=== PATIENT | female | born 1980 | race African-American/Black ===

== ENCOUNTER 2022-11-13 12:21 | Inpatient (IN) | payer MEDICAID ==
[~2022-11-13] VITALS: Ht 152.4 cm; Wt 76.7 kg
[2022-11-13 12:44] VITALS: BP_SYST 111; PULSE 95; RESP 22; TEMP 98.3; O2SAT 97
--- NOTE | 2022-11-13 12:48 | NUR ---
Patient to ER bed 08 to gown for evaluation. Side rails up.
--- NOTE | 2022-11-13 13:00 | NUR ---
PATIENT BIB [facility] FACILITY ADMIN FOR WORSENING SKIN RASH SYMPTOMS OF AUTOIMMUNE DISORDER BULLOUS PEMPHIGOLD. OUTBREAK NOTED TO RIGHT NECK/CHEST. MED HX OF DOWNS SYNDROME. PATIENT HAS BEEN BEING TREATED ONGOING BY LDR RN SINCE JAN 2022 & FAMILY/FACILITY REPORTS WHAT THEY BELIEVE TO BE ADVERSE REACTIONS TO PREDNISONE IN FORM OF PSYCHOSIS. FACILITY ADMIN DOES STATE THAT DERM STECILIST EXPLAINED THAT MAY BE THE ONLY OPTION FOR TREATMENT & THEY GAVE ONE DOSE OF 20 MG PRIOR TO COMING TO ED THIS AM. PATIENT CURRENTLY CALM & COOPERATIVE. VSS.
[2022-11-13] MEDS ORDERED: predniSONE 20 MG TABLET PO ONE ×2 (13:30)
--- NOTE | 2022-11-13 13:30 | NUR ---
MEDICATIONS ADMINISTERED PER MD ORDERS.
--- NOTE | 2022-11-13 13:43 | NUR ---
Phlebotomy at bedside obtaining samples for testing
[2022-11-13 13:50] LABS: BASOPHILS % (AUTO) 0.3 % (0.0-2.0); EOSINOPHILS # (AUTO) 0.1 K/uL (0.0-0.4); EOSINOPHILS % (AUTO) 0.9 % (0.0-4.0); HEMATOCRIT 49.5 % (36-48); HEMOGLOBIN 15.7 g/dL (12.0-16.0); LYMPHOCYTES # (AUTO) 1.7 K/uL (1.0-5.5); LYMPHOCYTES % (AUTO) 12.6 % (20.5-51.5); MEAN CORPUSCULAR HEMOGLOBIN 29 pg (27-31); MEAN CORPUSCULAR HGB CONC 32 % (32-36); MEAN CORPUSCULAR VOLUME 90 fL (79.0-98.0); MONOCYTES # (AUTO) 0.5 K/uL (0.0-1.0); NEUTROPHILS % (AUTO) 82.2 % (40.0-70.0); PLATELET COUNT (AUTO) 214 K/uL (130-430); RED CELL DISTRIBUTION WIDTH 15.6 % (9.0-15.0); WHITE BLOOD COUNT (AUTO) 13.4 K/uL (4.8-10.8)
[2022-11-13 13:52] LABS: ERYTHROCYTE SEDIMENTATION RATE 45 MM/HR (0-20)
[2022-11-13 14:06] LABS: CALCIUM 8.4 mg/dL (8.4-11.0); CREATININE 1.05 mg/dL (0.55-1.30)
[2022-11-13 14:10] LABS: ALBUMIN 2.2 g/dL (3.4-4.8); TOTAL BILIRUBIN 0.4 mg/dL (0.0-1.0)
--- NOTE | 2022-11-13 15:27 | NUR ---
NOTIFIED ED ADMITTING, TONEY REGARDING DR. GREEN'S REQEUST FOR ADMISSION/TRANSFER. PER DR. GREEN, PT IS STABLE FOR TRANSFER. WILL CONTACT INTERVENTIONAL PAIN PHYSICIAN REGARDING THIS MATTER. PER FACESHEET: [facility]/MEDICAL-SUPERIOR CHOICE MEDICAL GPP
--- NOTE | 2022-11-13 15:31 | NUR ---
Admit bed requested Patient will be admitted to care of . Admitted to MED SURG unit. Diagnosis LEUKOCYTOSIS Inpatient (Yes or No) Y Observation (Yes or No) N Orientation concerns or request close to nursing station (Yes or No) N Covid Status N/A On vent or bipap N Isolation requirements N Needs a sitter N From Home (Yes or if No enter name of facility) [facility] Requires Dialysis (Yes or No) N Med Rec Completed (Yes of No) N
[2022-11-13] MEDS ORDERED: TRAZ-250 PO (16:15)
[2022-11-13] MEDS ORDERED: LEVE500T21 PO (16:15)
[2022-11-13] MEDS ORDERED: MYCO500T5 PO (16:15)
[2022-11-13] MEDS ORDERED: ATOR10TA68 PO (16:15)
[2022-11-13] MEDS ORDERED: QUET25TA36 PO (16:15)
[2022-11-13] MEDS ORDERED: HYDR-500 PO (16:15)
[2022-11-13 17:58] VITALS: BP_SYST 141; PULSE 87; RESP 15; TEMP 97.3
--- NOTE | 2022-11-13 19:15 | NUR ---
OPENING NOTE REPORT RECEIVED FROM DAYSHIFT NURSE. PATIENT RECEIVED LYING IN BED, AWAKE, NO S/S OF ACUTE DISTRESS. BREATHING EVEN AND UNLABORED. HOB SLIGHTLY RAISED. IV SITE PATENT. CALL LIGHT WITH PATIENT. BED ALARM ON. BED IS LOCKED AND AT LOWEST POSITION. WILL CONTINUE TO MONITOR.
[2022-11-13] MEDS ORDERED: ONDANSETRON HCL 4 MG/2 ML VIAL IVP PRN (19:45)
[2022-11-13] MEDS ORDERED: NALOXONE HCL 0.4 MG/ML AMP (NARCAN) IVP PRN ×2 (19:45)
[2022-11-13] MEDS ORDERED: ACETAMINOPHEN 325 MG TABLET PO PRN ×2 (19:45→20:00)
[2022-11-13] MEDS ORDERED: HYDROcodone/ACETAMIN 5-325 MG TAB (NORCO/ VICODIN) PO PRN (19:45)
[2022-11-13 20:00] VITALS: BP_SYST 116; PULSE 78; RESP 18; TEMP 97.4; O2SAT 95
[2022-11-13] MEDS: levETIRAcetam 500 MG TABLET PO SCH ×2 (21:00→23:24)
[2022-11-13] MEDS: traZODone HCL 50 MG TABLET (DESYREL) PO SCH ×2 (21:00→23:24)
[2022-11-13] MEDS: methylPREDNISolone SOD SUCC/PF 62.5 MG/ML VIAL IVP SCH (21:00)
[2022-11-13] MEDS: ATORVASTATIN 10 MG TABLET PO SCH (21:00)
[2022-11-13] MEDS: QUEtiapine FUMARATE 25 MG TABLET PO SCH (21:00)
[2022-11-13] MEDS: mycophenolate mofetiL 250 MG CAPSULE PO SCH (21:00)
--- NOTE | 2022-11-13 21:30 | NUR ---
REFUSING MEDICATIONS PATIENT EDUCATED ON MEDICATIONS, ITS PURPOSE AND BENEFITS ALONG WITH SIDE EFFECTS. PATIENT WAVES HER LEFT INDEX FINGER INDICATING SHE IS REFUSING. ATTEMPTED MULTIPLE TIMES, ALSO WITH A DIFFERENT NURSE, PATIENT STILL REFUSES. CHANGE NURSE WILL BE MADE AWARE.
[2022-11-13] MEDS: NORMAL SALINE 5 ML DISP.SYRIN IVF SCH (22:00)
[2022-11-14] VITALS (7 sets, daily range): BP systolic 105–122; PULSE 72–84; RESP 16–18; TEMP 97.1–97.9; O2SAT 94–97
--- NOTE | 2022-11-14 | NUR ---
ROUNDS PATIENT IN BED, RESTING. NO SIGNS OF DISCOMFORT. CHEST RISE AND FALL EVEN BILATERALLY. CALL LIGHT WITH PATIENT. BED ALARM ON. WILL CONTINUE TO MONITOR.
--- NOTE | 2022-11-14 04:00 | NUR ---
ROUNDS/REFUSING KARUNA CARE PATIENT IN BED, RESTING, WOKEN UP FOR KARUNA CARE. PATIENT REFUSING TO HAVE SWEAT PANTS REMOVED, 2ND RN (FEMALE) AT BEDSIDE ATTEMPTING TO CONVINCE PATIENT WITH ME. PATIENT STILL REFUSING. WILL ATTEMPT AGAIN LATER. OTHERWISE PATIENT SHOWS NO SIGNS OF DISCOMFORT. SAFETY PRECAUTIONS IN PLACE. WILL MONITOR.
[2022-11-14 04:57] LABS: BASOPHILS % (AUTO) 0.2 % (0.0-2.0); EOSINOPHILS % (AUTO) 0.1 % (0.0-4.0); HEMATOCRIT 41.7 % (36-48); HEMOGLOBIN 13.5 g/dL (12.0-16.0); LYMPHOCYTES # (AUTO) 2.2 K/uL (1.0-5.5); MEAN CORPUSCULAR HEMOGLOBIN 29 pg (27-31); MEAN CORPUSCULAR HGB CONC 32 % (32-36); MEAN CORPUSCULAR VOLUME 88 fL (79.0-98.0); MONOCYTES # (AUTO) 0.7 K/uL (0.0-1.0); MONOCYTES % (AUTO) 8.1 % (1.7-9.3); NEUTROPHILS # (AUTO) 5.5 K/uL (1.8-7.7); NEUTROPHILS % (AUTO) 65.6 % (40.0-70.0); PLATELET COUNT (AUTO) 229 K/uL (130-430); RED BLOOD CELL COUNT(AUTO) 4.75 MIL/uL (4.2-6.2); RED CELL DISTRIBUTION WIDTH 14.9 % (9.0-15.0); WHITE BLOOD COUNT (AUTO) 8.3 K/uL (4.8-10.8)
[2022-11-14 05:09] LABS: CALCIUM 8.7 mg/dL (8.4-11.0); CREATININE 0.68 mg/dL (0.55-1.30)
[2022-11-14] MEDS: NORMAL SALINE 5 ML DISP.SYRIN IVF SCH ×3 (06:00→21:08)
--- NOTE | 2022-11-14 06:21 | NUR ---
CLOSING NOTE PATIENT IN BED, NO S/S OF ACUTE DISTRESS. BREATHING EVEN AND UNLABORED. IV SITE REMAINS INTACT. PATIENT REFUSING KARUNA CARE STILL, OFFERED BY RN. SAFETY PRECAUTIONS IN PLACE. WILL MONITOR UNTIL PATIENT CARE IS ENDORSED TO ONCOMING DAYSHIFT NURSE.
[2022-11-14] MEDS: methylPREDNISolone SOD SUCC/PF 62.5 MG/ML VIAL IVP SCH ×2 (08:49→21:00)
[2022-11-14] MEDS: levETIRAcetam 500 MG TABLET PO SCH ×2 (08:50→21:01)
[2022-11-14] MEDS: mycophenolate mofetiL 250 MG CAPSULE PO SCH ×2 (09:01→21:01)
--- NOTE | 2022-11-14 15:10 | NUR ---
Patient Refused Wound Assessment: Patient refused wound assessment despite explanation of nature and benefit wound assessments. Will try again tomorrow.
--- NOTE | 2022-11-14 19:15 | NUR ---
OPENING NOTE REPORT RECEIVED FROM DAYSHIFT NURSE. PATIENT RECEIVED LYING IN BED, AWAKE, EATING DINNER. NO S/S OF ACUTE DISTRESS. BREATHING EVEN AND UNLABORED. CALL LIGHT WITH PATIENT. BED ALARM ON. BED IS LOCKED AND AT LOWEST POSITION. WILL CONTINUE TO MONITOR.
[2022-11-14] MEDS: traZODone HCL 50 MG TABLET (DESYREL) PO SCH (21:00)
[2022-11-14] MEDS: ATORVASTATIN 10 MG TABLET PO SCH (21:00)
[2022-11-14] MEDS: HYDROcodone/ACETAMIN 10-325 MG TAB PO PRN (21:01)
[2022-11-14] MEDS: QUEtiapine FUMARATE 25 MG TABLET PO SCH (21:01)
[2022-11-15] VITALS (7 sets, daily range): BP systolic 108–136; PULSE 71–84; RESP 14–20; TEMP 96.2–97.6; O2SAT 92–98
[2022-11-15] MEDS: LORazepam 2 MG/ML VIAL IVP PRN (00:27)
--- NOTE | 2022-11-15 00:27 | NUR ---
PICKING SCABS AIR SAMPLER INFORMED RN, PATIENT WAS PICKING HER SCABS ON HER CHEST. ATTEMPTED TO REDIRECT PATIENT AND EDUCATED HER ON NOT PICKING HER SCABS, EDUCATION INEFFECTIVE DUE TO MENTAL STATE. RN ATTEMPTED TO ADMINISTER ATIVAN, PATIENT REFUSING, WOULD NOT HOLD STILL. MEDICATED WASTED PROPERLY. WILL MONITOR.
--- NOTE | 2022-11-15 03:00 | NUR ---
ROUNDS PATIENT IN BED, RESTING. NO SIGNS OF DISCOMFORT. CHEST RISE AND FALL EVEN BILATERALLY. CALL LIGHT WITH PATIENT. BED ALARM ON. WILL CONTINUE TO MONITOR.
[2022-11-15 05:34] LABS: BASOPHILS % (AUTO) 0.2 % (0.0-2.0); EOSINOPHILS % (AUTO) 0.1 % (0.0-4.0); HEMATOCRIT 41.8 % (36-48); HEMOGLOBIN 13.4 g/dL (12.0-16.0); LYMPHOCYTES # (AUTO) 1.8 K/uL (1.0-5.5); LYMPHOCYTES % (AUTO) 23.7 % (20.5-51.5); MEAN CORPUSCULAR HEMOGLOBIN 28 pg (27-31); MEAN CORPUSCULAR HGB CONC 32 % (32-36); MEAN CORPUSCULAR VOLUME 88 fL (79.0-98.0); MONOCYTES % (AUTO) 13.3 % (1.7-9.3); NEUTROPHILS # (AUTO) 4.7 K/uL (1.8-7.7); NEUTROPHILS % (AUTO) 62.7 % (40.0-70.0); PLATELET COUNT (AUTO) 256 K/uL (130-430); RED BLOOD CELL COUNT(AUTO) 4.75 MIL/uL (4.2-6.2); WHITE BLOOD COUNT (AUTO) 7.5 K/uL (4.8-10.8)
[2022-11-15 05:35] LABS: ERYTHROCYTE SEDIMENTATION RATE 59 MM/HR (0-20)
[2022-11-15 05:56] LABS: ALBUMIN 2.2 g/dL (3.4-4.8); CALCIUM 8.5 mg/dL (8.4-11.0); CREATININE 0.82 mg/dL (0.55-1.30); TOTAL BILIRUBIN 0.3 mg/dL (0.0-1.0)
[2022-11-15] MEDS: NORMAL SALINE 5 ML DISP.SYRIN IVF SCH ×3 (06:00→22:00)
--- NOTE | 2022-11-15 06:34 | NUR ---
CLOSING NOTE PATIENT IN BED, NO S/S OF ACUTE DISTRESS NOTED. BREATHING EVEN AND UNLABORED. ALL NEEDS MET. FALL, SAFETY PRECAUTIONS MAINTAINED THROUGHOUT SHIFT. WILL CONTINUE TO MONITOR UNTIL PATIENT CARE IS ENDORSED TO ONCOMING DAYSHIFT NURSE.
[2022-11-15] MEDS: methylPREDNISolone SOD SUCC/PF 62.5 MG/ML VIAL IVP SCH ×2 (08:32→20:52)
[2022-11-15] MEDS: levETIRAcetam 500 MG TABLET PO SCH ×3 (08:33→21:00)
[2022-11-15] MEDS: mycophenolate mofetiL 250 MG CAPSULE PO SCH ×3 (08:33→21:00)
--- NOTE | 2022-11-15 12:13 | NUR ---
SW not in today. CM gave caregiver Su website information for Medicare. Advised to ask patient regional center to assist with signing patient up for Medicare
--- NOTE | 2022-11-15 15:45 | NUR ---
WOUND EVALUATION: Wound Consult received from Dr. Hai Zamora. Thank you, Dr. Zamora, for the consult. Patient received in a [place] Bed with a mattress, awake, alert, confused. Patient is unable to turn independently. Arsenio Score is a 15. Past Medical History: Bullous Pemphigoid, exacerbation of Bullous Pemphigoid, Seizure disorder, Down Syndrome, Hyperlipidemia. Recent Labs: WBC 7.5, RBC 4.75, hemoglobin 13.4, hematocrit 41.8, ESR 59, BUN 15, creatinine 0.82, GFR 98, albumin 2.2. Microbiology: No microbiology reports. Intrinsic factors that delay wound healing: Bullous Pemphigoid, Hypoalbuminemia. Extrinsic factors that delay wound healing: Decreased mobility. Patient was writhing and turning in bed, trying to resist assessment. Unable to do complete assessment, some areas may have been missed. Assessments and measurements are subject to error due to difficulty of assessing sites. Wound Assessment: All sites below present on admission: 1. Left Anterior Forehead: Bullous Pemphigoid Lesion, present on admission. Site now has 100% black scab. No odor, no drainage. Periwound intact. Wound measures 1.5 cm x 2.2 cm. Recommend: No dressing needed. Continue to monitor site every shift. 2. Upper and Lower Lips: Dry, flaky, scaly skin with 90% brown scabs and 10% red tissue, possibly from Bullous Pemphigoid. Recommend: Cleanse sites with normal saline. Gently pat dry. Apply petrolatum jelly to sites. Perform site care daily, and as needed for dressing soiling or dislodgement. 3. Anterior Proximal Trunk/Neck Line: Multiple, multiple areas of dry black scabs (80%) and non-intact skin areas with red tissue (20% red tissue). No odor, moderate serous drainage. Periwounds intact. Entire site measures 13.0 cm x 29.0 cm. Recommend: Cleanse sites with normal saline. Gently pat dry. Apply Clobetasol to nonintact skin areas, cover with Xeroform dressings. Cover with ABD pads and secure with transparent dressings. Perform site care twice daily and as needed for dressing soiling or dislodgment. Place Interdry AG cloth in between trunk and neck area. Change Interdry AG cloth every 5 days and as needed for cloth soiling. 4. Left Posterior Back: Several small areas of non-intact skin areas with red tissue. No odor, moderate serous drainage. Periwounds intact. Entire site measures 1.0 cm x 2.7 cm. Recommend: Cleanse sites with normal saline. Gently pat dry. Apply Clobetasol to nonintact skin areas, cover with Xeroform dressing. Cover with nonadhesive foam dressing(s) and secure with transparent dressings. Perform site twice daily and as needed for dressing soiling or dislodgment. 5. Left Posterior Pelvis: Multiple, multiple lesions with 10% red tissue, 90% pink tissue. No odor, no drainage. Periwounds intact. Entire site measures 13.0 cm x 25.0 cm. Recommend: Cleanse sites with normal saline. Gently pat dry. Apply Clobetasol to nonintact skin areas, cover with Xeroform dressings. Cover with ABD pads and secure with transparent dressings. Perform site care twice daily and as needed for dressing soiling or dislodgment. 6. Left Buttock: Multiple, multiple lesions with 80% red tissue, 20% pink tissue. No odor, no drainage. Periwound is intact. Recommend: Cleanse sites with normal saline. Gently pat dry. Apply Clobetasol to nonintact skin areas, cover with Xeroform dressings. Cover with ABD pads and secure with transparent dressings. Perform site care twice daily and as needed for dressing soiling or dislodgment. 7. Right Anterior Proximal Thigh: Multiple, multiple areas of dried black scabs with dry, flaky skin. No odor, no drainage. Entire site measures 22.0 cm x 17.7 cm. Recommend: Cleanse dry, flaky skin with mild soap and water. Gently pat dry. Apply Eucerin cream to dry, flaky skin areas. Perform site care twice daily and as needed for dressing soiling or dislodgment. 8. Right Lateral Thigh: Large area of pink scar tissue with dry flaky skin. No odor, no drainage. Entire site measures 9.5 cm x 7.3 cm. Recommend: Cleanse dry, flaky skin with mild soap and water. Gently pat dry. Apply Eucerin cream to dry, flaky skin areas. Perform site care twice daily and as needed for dressing soiling or dislodgment. 9. Right Distal Medial Thigh: Several areas of nonintact skin with 90% black scab, 10% red tissue no odor, no drainage. Periwound intact. Entire site measures 5.0 cm x 4.5 cm. Recommend: Cleanse sites with normal saline. Gently pat dry. Apply Clobetasol to nonintact skin areas, cover with Xeroform dressings. Cover with ABD pads and secure with transparent dressings. Perform site care twice daily and as needed for dressing soiling or dislodgment. 10. Right Anterior Lateral Proximal Chopra: Large area of dry, flaky skin. No odor, no drainage. Site measures 7.5 cm x 5.0 cm. Recommend: Cleanse dry, flaky skin with mild soap and water. Gently pat dry. Apply Eucerin cream to dry, flaky skin areas. Perform site care twice daily and as needed for dressing soiling or dislodgment. 11. Right Anterior Chopra Dry, flaky skin. Distal aspect upper extremity has an open Bullous Pemphigoid Lesion with 100% red tissue. No odor, no drainage. Periwound intact. Lesion measures 1.0 cm x 0.5 cm. Recommend: Cleanse wound with normal saline. Gently pat dry. Apply Clobetasol to nonintact skin areas, cover with Xeroform dressings. Cover with ABD pads and secure with transparent dressings. Perform site care twice daily and as needed for dressing soiling or dislodgment. Cleanse dry, flaky skin with mild soap and water. Gently pat dry. Apply Eucerin cream to dry, flaky skin areas. Perform site care twice daily and as needed for dressing soiling or dislodgment. 12. Left Anterior Thigh: Large area of dry, flaky skin with multiple, multiple black scabs. No odor, no drainage. Entire site measures 23.0 cm x 25.0 cm. (Black scab area measures 10.5 cm x 8.0 cm). Recommend: No dressings needed. Continue to monitor site every shift. 13. Left Lateral Proximal Calf: Multiple bullous pemphigoid lesions with 100% red tissue. No odor, scant sanguineous drainage. Periwound is intact. Site measures 3.2 cm x 3.2 cm. Also recommend: Encourage and assist patient with repositioning every 2 hours with pillow support and off-load pressure areas with pillows for pressure re-distribution. Offload, elevate and float bilateral heels with pillows. Perform skin care and monitor skin integrity Q shift. Use moisture barrier cream on buttocks and other moisture susceptible areas QID and as needed for soiling. Place patient on a low air-loss mattress for moisture management. Addendum: 11/15/22 at 1712 by Amilcar Lemon RN Addendum: Treatment for site 13 is as follows: Recommend: Cleanse wounds with normal saline. Gently pat dry. Apply Clobetasol to nonintact skin areas, cover with Xeroform dressings. Cover with ABD pads and secure with transparent dressings. Perform site care twice daily and as needed for dressing soiling or dislodgment.
[2022-11-15] MEDS ORDERED: cloNIDine HCL 0.2 MG TABLET PO PRN (17:45)
--- NOTE | 2022-11-15 19:15 | NUR ---
OPENING NOTE REPORT RECEIVED FROM DAYSHIFT NURSE. PATIENT RECEIVED LYING IN BED, AWAKE, EATING DINNER. NO S/S OF ACUTE DISTRESS. BREATHING EVEN AND UNLABORED. HOB RAISED. IV SITE PATENT, NO SIGNS OF INFILTRATION OR INFECTION NOTED. CALL LIGHT WITH PATIENT. BED ALARM ON. BED IS LOCKED AND AT LOWEST POSITION. WILL CONTINUE TO MONITOR.
[2022-11-15] MEDS: ATORVASTATIN 10 MG TABLET PO SCH ×2 (20:54→21:00)
[2022-11-15] MEDS: traZODone HCL 50 MG TABLET (DESYREL) PO SCH (20:54)
[2022-11-15] MEDS: HYDROcodone/ACETAMIN 10-325 MG TAB PO PRN (20:55)
[2022-11-15] MEDS: SILVER SULFADIAZINE 1%, 400 GM 400 GM CREAM.GM. TP SCH ×2 (20:56→21:00)
[2022-11-15] MEDS: LANOLIN ALCOHOL/MO/W.PET/CERES 57 GM CREAM..G. TP SCH ×2 (20:56→21:00)
[2022-11-15] MEDS: QUEtiapine FUMARATE 25 MG TABLET PO SCH ×2 (20:56→21:00)
--- NOTE | 2022-11-15 21:43 | NUR ---
DOV WOUND CARE NURSE CAME TO SEE PATIENT AND ASSESS WOUND'S INSTRUCTED PRIMARY NURSE ON HOW TO CARE FOR WOUNDS. PROGRAMMER ANALYST CONSULTANT CAME WELL FROM PATIENT FACILITY TO FOLLOW UP ON PATIENT. PATIENT UNCOOPERATIVE AT FIRST BUT THEN ONCE FACILITY PROGRAMMER ANALYST CONSULTANT AT BEDSIDE PATIENT MORE COOPERATIVE
--- NOTE | 2022-11-15 23:00 | NUR ---
INCONTINENT CARE PATIENT BEING CLEANED BY SERVICE CREW LEADER. PATIENT TOLERATING WELL. ALL NEEDS MET AT THIS TIME. WILL MONITOR.
[2022-11-16 00:09] VITALS: BP_SYST 108; PULSE 71; RESP 14; TEMP 96; O2SAT 95
--- NOTE | 2022-11-16 03:00 | NUR ---
ROUNDS NO CHANGE IN CONDITION. ALL NEEDS MET. WILL MONITOR.
[2022-11-16] MEDS ORDERED: PRED10TA PO (04:27)
[2022-11-16] MEDS ORDERED: PRED20TA PO (04:27)
[2022-11-16 05:25] LABS: BASOPHILS % (AUTO) 0.1 % (0.0-2.0); HEMATOCRIT 41.8 % (36-48); HEMOGLOBIN 13.4 g/dL (12.0-16.0); LYMPHOCYTES # (AUTO) 1.8 K/uL (1.0-5.5); LYMPHOCYTES % (AUTO) 22.3 % (20.5-51.5); MEAN CORPUSCULAR HEMOGLOBIN 28 pg (27-31); MEAN CORPUSCULAR HGB CONC 32 % (32-36); MEAN CORPUSCULAR VOLUME 88 fL (79.0-98.0); MONOCYTES # (AUTO) 0.3 K/uL (0.0-1.0); MONOCYTES % (AUTO) 3.9 % (1.7-9.3); NEUTROPHILS # (AUTO) 5.8 K/uL (1.8-7.7); NEUTROPHILS % (AUTO) 73.7 % (40.0-70.0); PLATELET COUNT (AUTO) 235 K/uL (130-430); RED BLOOD CELL COUNT(AUTO) 4.76 MIL/uL (4.2-6.2); RED CELL DISTRIBUTION WIDTH 15.2 % (9.0-15.0); WHITE BLOOD COUNT (AUTO) 7.9 K/uL (4.8-10.8)
[2022-11-16 05:42] LABS: CALCIUM 8.3 mg/dL (8.4-11.0); CREATININE 0.72 mg/dL (0.55-1.30)
[2022-11-16] MEDS: NORMAL SALINE 5 ML DISP.SYRIN IVF SCH ×3 (06:00→22:00)
--- NOTE | 2022-11-16 06:31 | NUR ---
CLOSING NOTE PATIENT IN BED, NO S/S OF ACUTE DISTRESS. BREATHING EVEN AND UNLABORED. IV SITE PATENT. ALL NEEDS MET THROUGHOUT SHIFT. FALL, SAFETY PRECAUTIONS MAINTAINED THROUGHOUT SHIFT. WILL CONTINUE TO MONITOR UNTIL PATIENT CARE IS ENDORSED TO ONCOMING DAYSHIFT NURSE.
[2022-11-16 07:00] VITALS: TEMP 97.3; O2SAT 96
[2022-11-16] MEDS: levETIRAcetam 500 MG TABLET PO SCH ×2 (09:00→21:00)
[2022-11-16] MEDS: SILVER SULFADIAZINE 1%, 400 GM 400 GM CREAM.GM. TP SCH ×2 (09:00→21:00)
[2022-11-16] MEDS: LANOLIN ALCOHOL/MO/W.PET/CERES 57 GM CREAM..G. TP SCH ×2 (09:00→21:00)
[2022-11-16] MEDS: methylPREDNISolone SOD SUCC/PF 62.5 MG/ML VIAL IVP SCH ×2 (09:00→21:00)
[2022-11-16] MEDS: mycophenolate mofetiL 250 MG CAPSULE PO SCH ×2 (09:00→21:00)
[2022-11-16] MEDS: CLOBETASOL PROPIONATE 0.05% 15 GM CREAM..G. TP SCH ×2 (09:00→21:00)
[2022-11-16 12:54] VITALS: BP_SYST 140; PULSE 70; RESP 17; TEMP 97.4; O2SAT 97
[2022-11-16 16:42] VITALS: BP_SYST 135; RESP 16; TEMP 97.2; O2SAT 96
--- NOTE | 2022-11-16 17:05 | NUR ---
PER INSTRUCTION OF THE MY CN, NANCY I CALLED THE PT'S HOME TO NOTIFY THEM THAT PT HAS DISCHARGE ORDER. LEFT A MESSAGE TO [facility] B[facility] RUTH, AND HER MOTHER YI LANCASTER.
--- NOTE | 2022-11-16 18:37 | NUR ---
LEFT MESSAGE CALLED PER NANCY CALLED YI LANCASTER [facility] TO PLEASE CALL US .
--- NOTE | 2022-11-16 19:53 | NUR ---
RECEIVED PATIENT IN BED RESTING COMFORTABLY, PRESENTS CALM NO C/O PAIN OR DISCOMFORT. RESPIRATIONS ARE NON-LABORED. SKIN IS CLEAN WARM AND DRY TO TOUCH, IV ACCESS IS PATENT, NO S/SX OF REDNESS OE SWELLING. BED IS LOCKED IN LOWEST POSITION, CALL LIGHT IN REACH. NURSE WILL CONTINUE CARE AND MONITOR FOR CHANGES IN STATUS.
[2022-11-16 20:58] VITALS: O2SAT 98
[2022-11-16] MEDS: traZODone HCL 50 MG TABLET (DESYREL) PO SCH (21:00)
[2022-11-16] MEDS: ATORVASTATIN 10 MG TABLET PO SCH (21:00)
[2022-11-16] MEDS: QUEtiapine FUMARATE 25 MG TABLET PO SCH (21:00)
[2022-11-17 00:08] VITALS: BP_SYST 116; PULSE 77; RESP 15; TEMP 96.2; O2SAT 98
--- NOTE | 2022-11-17 03:25 | NUR ---
PATIENT IN BED RESTING COMFORTABLY, NO C/O PAIN OR DISCOMFORT. RESPIRATIONS ARE NON-LABORED. SKIN IS CLEAN WARM AND DRY TO TOUCH, IV ACCESS IS PATENT, NO S/SX OF REDNESS OE SWELLING. BED IS LOCKED IN LOWEST POSITION, CALL LIGHT IN REACH. NURSE WILL CONTINUE CARE AND MONITOR FOR CHANGES IN STATUS.
[2022-11-17] MEDS: NORMAL SALINE 5 ML DISP.SYRIN IVF SCH ×3 (03:51→21:02)
[2022-11-17 04:12] VITALS: RESP 18; TEMP 97.5
[2022-11-17 08:00] VITALS: BP_SYST 118; RESP 18; TEMP 97.6; O2SAT 99
--- NOTE | 2022-11-17 08:00 | NUR ---
Called both patient's caregiver and patient's mother to have patient picked up as discharge order was written yesterday. No answer from caregiver but spoke to mother and relayed the message. She stated she would call the facility and have caregiver cotton picker patient. Left name and number for both to be able to call this RN back. Tam Montalvo RN
[2022-11-17] MEDS: CLOBETASOL PROPIONATE 0.05% 15 GM CREAM..G. TP SCH ×2 (09:00→21:00)
[2022-11-17] MEDS: mycophenolate mofetiL 250 MG CAPSULE PO SCH ×2 (09:00→21:00)
[2022-11-17] MEDS: LANOLIN ALCOHOL/MO/W.PET/CERES 57 GM CREAM..G. TP SCH ×2 (09:00→21:00)
[2022-11-17] MEDS: methylPREDNISolone SOD SUCC/PF 62.5 MG/ML VIAL IVP SCH ×2 (09:00→21:00)
[2022-11-17] MEDS: levETIRAcetam 500 MG TABLET PO SCH ×2 (09:00→21:00)
[2022-11-17] MEDS: SILVER SULFADIAZINE 1%, 400 GM 400 GM CREAM.GM. TP SCH ×2 (09:00→21:00)
--- NOTE | 2022-11-17 11:00 | NUR ---
Had an extensive conversation with caregiver Su Lindsay at [facility]. She indicated that patient is conserved and according to her and the [facility] social economist, patient is getting to be too dependent to return to her current facility. They are developing a plan to transfer patient to another facility. [facility] SALES PROMOTER FOR MS. PELAYO: [place], .
[2022-11-17 12:00] VITALS: BP_SYST 127; PULSE 78; RESP 17; TEMP 97.1; O2SAT 97
--- NOTE | 2022-11-17 12:15 | NUR ---
CM: LVM /informed dcp to snf to pt's mother/Rosalina and spoke with Betina, caregiver at [facility] who stated that the pt needs a higher level of care for the mentally disable facility. [facility] is a level 1 facility and no longer able to provide care for the pt. The pt is non compliance with medication and combative when taking Predisone medication. Su already spoke with Christa at [facility] who is working on finding another placement for the pt. The patient may transfer to an accepting snf while waiting for Christa 's B/C arrangement.
--- NOTE | 2022-11-17 12:21 | NUR ---
Dietitian Recommendations * Ordered: CCHO, mechanical soft diet * Ordered: Terrance BID (provides 180 kcal and 5 g PRO) * Consider obtaining Hgba1c value GS, MPH, RD Please refer to RD Assessment for further details. Thanks! Addendum: 11/17/22 at [address] Amended: Links added.
--- NOTE | 2022-11-17 12:24 | NUR ---
RN spoke with foster care case manager and MD about patient's current situation and MD concurred that patient is eligible for SNF. Order informtion passed on to case management and mentioned to retail chain store area supervisor in place of crochet machine operator today7.
--- NOTE | 2022-11-17 12:30 | NUR ---
CM: faxed referral to [facility], 2. [place], attunruly C[facility] : no [facility] bed, 3. [facility], natalie Stephens: the pt is accepted. She will get auth from ins. tomorrow. Addendum: 11/17/22 at 1635 by Nelli Roberts RN S/w Rosalina, mother : she does not approve the transfer to [facility], said pt tentatively has a B/C arranged, Christa,conservator plans to place pt at [facility] , [address] [place] [address] tel [phone]. ANAISP/CM to f/u with Christa for the approval on Saturday 11/18.
[2022-11-17 16:00] VITALS: BP_SYST 120; PULSE 80; RESP 18; TEMP 97.4; O2SAT 97
--- NOTE | 2022-11-17 19:30 | NUR ---
END OF SHIFT SUMMARY: Patient continued to refuse care this afternoon. SOFTWOOD FALLER and RN both observed patient this shift. No falls for patient at this time.
[2022-11-17 20:00] VITALS: O2SAT 97
--- NOTE | 2022-11-17 20:00 | NUR ---
RECEIVED IN BED NON FOOD RECEIVING CLERK SITTING AT DOOR PT NON VERBAL AND UNABLE TO FOLLOW SIMPLE COMMANDS UPON ASSESSMENT PT HOLDING SHEET TIGHT OVER HER MOUTH REFUSING FULL ASSESSMENT ATEMPTED TO GIVE APPLE SAUCE PT REFUSED PT REUSED MEDS ON DAY SHIFT AND CONTINUES TO REFUSE THIS SHIFT NON FOOD RECEIVING CLERK SITTING AT DOOR FOR SAFETY PT NORED TO HAVE SCABS ON BODY SECONDARY TO AUTO IMMUNE DISEASE PER DAY SHIFT PT HAS ORDER TO DC TO SNF AND CASE MANAGEMENT WILL FOLLOW UP IN AM PT NOT DISCHARGED TODAY BECAUSE PT HAS A CONSERVATOR WILL CONTINUE TO MONITOR PT AND WILL CONTINUE TO ATTEMT TO GIVE CARE
[2022-11-17] MEDS: ATORVASTATIN 10 MG TABLET PO SCH (21:00)
[2022-11-17] MEDS: QUEtiapine FUMARATE 25 MG TABLET PO SCH (21:00)
[2022-11-17] MEDS: traZODone HCL 50 MG TABLET (DESYREL) PO SCH (21:00)
[2022-11-18 00:22] VITALS: BP_SYST 110; PULSE 87; RESP 18; TEMP 97.4; O2SAT 96
--- NOTE | 2022-11-18 04:46 | NUR ---
BED BATH GIVEN AT THIS TIME SOMEWHAT RESISANT TO CARE INCONTINENT NO BM NOTED REFUSES TO OPEN MOUTH FOR APPLESAUCE ALL NEEDS ANTICIPATED UNABLE TO GIVE MEDS DUE TO PT NON COMPLIANT WITH OPENING MOUTH WILL CONTINUE TO ROUND AND ASSESS
[2022-11-18] MEDS: NORMAL SALINE 5 ML DISP.SYRIN IVF SCH ×3 (05:19→22:15)
--- NOTE | 2022-11-18 06:57 | NUR ---
NO SIGNIFICANT CHANGES WILL ENDORSE CARE TO ONCOMING LICENSED
[2022-11-18 07:21] LABS: EOSINOPHILS # (AUTO) 0.6 K/uL (0.0-0.4); LYMPHOCYTES # (AUTO) 1.6 K/uL (1.0-5.5)
[2022-11-18 07:29] LABS: BASOPHILS % (AUTO) 0.6 % (0.0-2.0); EOSINOPHILS % (AUTO) 6.9 % (0.0-4.0); HEMATOCRIT 48.8 % (36-48); HEMOGLOBIN 15.7 g/dL (12.0-16.0); LYMPHOCYTES % (AUTO) 18.8 % (20.5-51.5); MEAN CORPUSCULAR HEMOGLOBIN 29 pg (27-31); MEAN CORPUSCULAR HGB CONC 32 % (32-36); MEAN CORPUSCULAR VOLUME 89 fL (79.0-98.0); MONOCYTES # (AUTO) 0.9 K/uL (0.0-1.0); MONOCYTES % (AUTO) 10.4 % (1.7-9.3); NEUTROPHILS # (AUTO) 5.3 K/uL (1.8-7.7); NEUTROPHILS % (AUTO) 63.3 % (40.0-70.0); PLATELET COUNT (AUTO) 192 K/uL (130-430); RED BLOOD CELL COUNT(AUTO) 5.51 MIL/uL (4.2-6.2); RED CELL DISTRIBUTION WIDTH 15.7 % (9.0-15.0); WHITE BLOOD COUNT (AUTO) 8.3 K/uL (4.8-10.8)
[2022-11-18 07:48] LABS: ALBUMIN 2.1 g/dL (3.4-4.8); CALCIUM 8.2 mg/dL (8.4-11.0); CREATININE 0.81 mg/dL (0.55-1.30); TOTAL BILIRUBIN 0.4 mg/dL (0.0-1.0)
[2022-11-18 08:00] VITALS: O2SAT 96
--- NOTE | 2022-11-18 09:01 | NUR ---
SENT PACKET TO DARIAN AT [facility]
--- NOTE | 2022-11-18 09:07 | NUR ---
CM follow up with Christa Kauffman, regional service crew leader. DCP is for [facility] [place] to place patient in an ICF. Left VM and CM cb# for Christa regarding placement.
[2022-11-18 11:35] VITALS: BP_SYST 108; PULSE 110; RESP 18; TEMP 97.8; O2SAT 96
--- NOTE | 2022-11-18 11:35 | NUR ---
CM faxed DC plan order and clinicals to Christa Kauffman [phone]. Spoke with [facility] conservator named Sruthi Wagner who is also involved in care planning for this patient [phone]. CM provided patient insurance CM name and # to follow up with SNF placement and opinion polls survey worker, press operator needs. will follow up
--- NOTE | 2022-11-18 12:14 | NUR ---
TRISTA spoke with TRISTA Reaves for [facility] regarding DC plan. PT eval notes pending. Per weekend CM the mother does not approve for patient to go to a SNF. Jelly informs that she can only authorize for inpatient discharge needs. [facility] conservator Christa Kauffman is aware of mothers wishes and is trying to get an Intermediate Care Facility approval. Mother Rosalina Carvajal is asking for insurance to approve a transfer to [facility] for an bleach machine operator referral. Jelly will let the biomedical engineering technologist know she is having problems with getting an bleach machine operator referral; but she does not handle this kind of discharge planning. Jelly given Rosalina Carvajal's CB #. CM to follow up with Christa Kauffman regarding DC plan
[2022-11-18] MEDS: methylPREDNISolone SOD SUCC/PF 62.5 MG/ML VIAL IVP SCH ×2 (15:22→22:14)
[2022-11-18] MEDS: mycophenolate mofetiL 250 MG CAPSULE PO SCH ×2 (15:23→22:14)
[2022-11-18] MEDS: CLOBETASOL PROPIONATE 0.05% 15 GM CREAM..G. TP SCH ×2 (15:28→22:14)
[2022-11-18] MEDS: levETIRAcetam 500 MG TABLET PO SCH ×2 (15:29→22:14)
[2022-11-18] MEDS: SILVER SULFADIAZINE 1%, 400 GM 400 GM CREAM.GM. TP SCH ×2 (15:30→22:15)
[2022-11-18] MEDS: LANOLIN ALCOHOL/MO/W.PET/CERES 57 GM CREAM..G. TP SCH ×2 (15:30→22:15)
--- NOTE | 2022-11-18 15:42 | NUR ---
Nutrition F/U RDE reviewed pts current EMR including diet hx, physician notes, nursing notes, pertinent labs/meds/procedures, care trends and care activity. Admitting Diagnosis Leukocytosis, rash Medical History Comment: Per H&P: 42 YOF who was brought in by caregiver for exacerbation of bullous pemphigoid, which she has been experiencing since 01/2022. The patient was given prednisone, however, weaned off due to altered mental status. Last dose was on 07/20/2022. The patient was given Kenalog and clobetasol ointment on 10/03/2022 during her last visit with her. PMHx: seizure disorder, down syndrome, HLD, bullous pemphigoid See Wound Consult 11/15 for details on skin wounds, all present on admission. safety deposit boxes custodian. The patient denies any other complaints. 11/17: Per MD Zamora, DC Summary was placed at 19:02. Per MD Echavarria, continue steroids. Subjective Information Pt is non-communicable. RDE spoke w/ family member and she requested a finely chopped or puree diet d/t pt having dentures. Pt has not been drinking the Terrance, so family member asked for a different flavor. Flavor updated on [employer] from orange to fruit punch. Glucerna TID was also inputted per family request. Current Diet Order/Nutrition Support [facility] diet x 1 day Patient/Significant Other Unable To Verbalize Education Provided Not Indicated Pertinent Medications [place] Pertinent Labs BG 73L (worsening), Ca 8.2L (worsening), Alb 2.1L (worsening) Height (Feet) 5 feet Height (Inches) 0.00 inches Weight (Pounds) 169 pounds (Stable since 11/17) Patient Weight 76.657 kg Body Mass Index 33.00 kg/m2 %IBW 171 [place]/Adjusted Body Weight 100#/45 kg/ ABW 117#/53 kg Recent Weight Change Yes - 14-23 # per RN screen; 8-12% weight loss Weight Status Obese Gastrointestinal Symptoms None Last BM Nov 17, 2022 x 1 Food Allergies No per family report Usual Diet At Home Regular/ soft per family report Skin Integrity Comment: Arsenio: 15 Wounds: Wound on anterior lower coccyx (11/17) Edema: none noted Current % PO Poor; avg 41% x 9 meals w/ min. Assistance (declining) Estimated Energy Expenditure (kcals/day) 2297-8661 (30-35 kcal/kg ABW [53 kg] d/t wounds covering body) Estimated Protein Required (g/day) 80-106 (1.5-2 g/kg ABW d/t wounds) Estimated Fluid Required (l/day) [NEW] 1.9-2.3 (25-30 kcal/kg CBW for adult maintenance) Problem/Etiology/Signs/Symptoms * Increased energy and protein utilization R/T metabolic demands AEB estimated nutritional needs for wound healing (*Ongoing). Expected Outcomes/Goals [MODIFIED] * Monitor appetite and PO intakes w/ goal of pt meeting >75% of estimated nutritional needs, nutrition-related labs trending WNL, normal GI function and BM regimen, skin integrity w/ wt. maintenance. Dietitian Recommendations [NEW] * Ordered: CCHO, Finely Chopped diet, Glucerna TID (ONS provides 660 kcals and 40g PRO daily) * Consider obtaining Hgba1c value Follow Up High Risk: F/U in 2-3 days ROSETTA, ISRAEL Trainee
--- NOTE | 2022-11-18 15:43 | NUR ---
Dietitian Recommendations [NEW]: * Ordered: CCHO, Finely Chopped diet, Glucerna TID (ONS provides 660 kcals and 40g PRO daily) * Consider obtaining Hgba1c value ISRAEL SARGENT Trainee Please refer to Nutrition Follow-up for further details.
--- NOTE | 2022-11-18 16:55 | NUR ---
>>>PT EVAL<<< PATIENT REFUSED TO PARTICIPATE WITH PHYSICAL THERAPY TODAY. WILL FOLLOW UP ON 11/19/22.
[2022-11-18 17:30] VITALS: BP_SYST 102; PULSE 99; RESP 19; TEMP 97.7; O2SAT 98
--- NOTE | 2022-11-18 19:30 | NUR ---
END OF SHIFT SUMMARY: Patient has been declining over the last few shifts with skin lesions getting worse, patient refusing all care and her just lying in bed. Today RN had called both staff at [facility] facility and mother to explain situation and both parties came to hospital to visit patient. Taking all shift (until 7 PM), between nursing staff here, patient's mother, and staff at [facility], patient who lives with down syndrome felt comfortable enough to take medications, eat, bathe allow staff to change linens and watch television for a bit with mother. Mother also got to speak to case management in the hospital and give information about patient's needs and how the [facility] needs to change patient's placement. By the end of the shift, everyone was please with both the short term and parts counterman plan for Rajni and stated they would stay in touch to keep everything going. This RN noted that because familiar staff and family came to help patient today, patient was amenable to allowing care be performed. Advised that someone the patient is familiar with should visit daily and then patient's care can be provided. Patient sleeping at the end of shift after a full day of activity; no signs or symptoms of discomfort or distress at this time.
[2022-11-18 20:00] VITALS: BP_SYST 106; PULSE 96; RESP 18; TEMP 97.6; O2SAT 97
--- NOTE | 2022-11-18 20:00 | NUR ---
RECEIVED IN BED PT NON VERBAL FOLLOWING SIMPLE COMMANDS ASSESSMENT COMPLETED BED IN LOW POSITION CALL LIGHT IN REACH BED ALARM ACTIVATED WILL CONTINUE TO MONITOR AND ASSESS
[2022-11-18] MEDS: QUEtiapine FUMARATE 25 MG TABLET PO SCH (22:14)
[2022-11-18] MEDS: ATORVASTATIN 10 MG TABLET PO SCH (22:14)
[2022-11-18] MEDS: traZODone HCL 50 MG TABLET (DESYREL) PO SCH (22:14)
[2022-11-19] VITALS (7 sets, daily range): BP systolic 85–113; PULSE 85–103; RESP 16–19; TEMP 96–98.6; O2SAT 93–98
[2022-11-19] MEDS: LORazepam 2 MG/ML VIAL IVP PRN (00:10)
--- NOTE | 2022-11-19 00:16 | NUR ---
PT SOMEWHAT AGITATED GOT OUT OF BED AND AMBULATED TO BATHROOM BED ALRM SOUNDED STAFF RAN TO ROOM AND PT WAS ON TOILET WITNESSED BY ONE STAFF AMBULATING FAST PT ASSISTED BACK TO BED AND ATIVAN GIVEN FOR AGITATION WILL CONITNUE TO MONITOR AND ASSESS
[2022-11-19] MEDS: NORMAL SALINE 5 ML DISP.SYRIN IVF SCH ×3 (05:46→22:02)
--- NOTE | 2022-11-19 06:32 | NUR ---
NO SIGNIFICANT CHANGES WILL ENDORSE TO ONCOMING LICENSED NURSE
[2022-11-19 06:35] LABS: BASOPHILS % (AUTO) 0.3 % (0.0-2.0); EOSINOPHILS % (AUTO) 0.1 % (0.0-4.0); HEMATOCRIT 46.6 % (36-48); LYMPHOCYTES # (AUTO) 2.2 K/uL (1.0-5.5); LYMPHOCYTES % (AUTO) 27.4 % (20.5-51.5); MEAN CORPUSCULAR HEMOGLOBIN 28 pg (27-31); MEAN CORPUSCULAR HGB CONC 32 % (32-36); MEAN CORPUSCULAR VOLUME 87 fL (79.0-98.0); MONOCYTES # (AUTO) 0.3 K/uL (0.0-1.0); MONOCYTES % (AUTO) 4.2 % (1.7-9.3); NEUTROPHILS # (AUTO) 5.4 K/uL (1.8-7.7); PLATELET COUNT (AUTO) 222 K/uL (130-430); RED BLOOD CELL COUNT(AUTO) 5.34 MIL/uL (4.2-6.2); RED CELL DISTRIBUTION WIDTH 15.3 % (9.0-15.0)
[2022-11-19 06:51] LABS: CALCIUM 8.4 mg/dL (8.4-11.0); CREATININE 0.83 mg/dL (0.55-1.30)
[2022-11-19] MEDS: LANOLIN ALCOHOL/MO/W.PET/CERES 57 GM CREAM..G. TP SCH ×2 (09:00→21:55)
[2022-11-19] MEDS: mycophenolate mofetiL 250 MG CAPSULE PO SCH ×2 (09:00→21:48)
[2022-11-19] MEDS: CLOBETASOL PROPIONATE 0.05% 15 GM CREAM..G. TP SCH ×2 (09:00→21:55)
[2022-11-19] MEDS: SILVER SULFADIAZINE 1%, 400 GM 400 GM CREAM.GM. TP SCH ×2 (09:00→21:55)
[2022-11-19] MEDS: methylPREDNISolone SOD SUCC/PF 62.5 MG/ML VIAL IVP SCH ×2 (09:39→21:50)
[2022-11-19] MEDS: levETIRAcetam 500 MG TABLET PO SCH ×2 (09:39→21:47)
--- NOTE | 2022-11-19 12:12 | NUR ---
CM reached out to Jelly at [facility] who confirms received fax for DC plan to SNF for wound care. director of public relations to review. Pending auth for SNF.
--- NOTE | 2022-11-19 20:00 | NUR ---
OPENING NOTES PATIENT IS ASLEEP IN BED WITH NO S/S OF DISTRESS OR DISCOMFORT. IV STILL INTACT. BREATHING IS EQUAL AND UNLABORED ON RA. PATIENT'S B/P WAS 85/58. PAGED DR FONG. SAFETY CHECKS DONE AND CALL LIGHT WITH IN REACH. WILL CONTINUE TO MONITOR.
--- NOTE | 2022-11-19 21:20 | NUR ---
DR. FONG CALLED BACK AND ORDERED 1LTR NS ONE TIME. PATIENT KEEPS REFUSING IVF. CALLED PATIENT'S MOM AND WAS ABLE TO TALK TO PATIENT TO LET ME HANG HER IVF. IVF ARE RUNNING. SAFETY CHECKS ARE DONE AND WILL CONTINUE TO MONITOR
[2022-11-19] MEDS ORDERED: NACL 0.9% 1,000 ML IV ONE (21:30)
[2022-11-19] MEDS: traZODone HCL 50 MG TABLET (DESYREL) PO SCH (21:47)
[2022-11-19] MEDS: QUEtiapine FUMARATE 25 MG TABLET PO SCH (21:47)
[2022-11-19] MEDS: ATORVASTATIN 10 MG TABLET PO SCH (21:48)
[2022-11-20 00:14] VITALS: BP_SYST 94; PULSE 81; RESP 18; TEMP 97.4; O2SAT 96
[2022-11-20 02:13] VITALS: O2SAT 98
[2022-11-20 06:45] LABS: BASOPHILS % (AUTO) 0.1 % (0.0-2.0); HEMATOCRIT 40.7 % (36-48); HEMOGLOBIN 13.3 g/dL (12.0-16.0); LYMPHOCYTES # (AUTO) 1.6 K/uL (1.0-5.5); LYMPHOCYTES % (AUTO) 23.7 % (20.5-51.5); MEAN CORPUSCULAR HEMOGLOBIN 28 pg (27-31); MEAN CORPUSCULAR HGB CONC 33 % (32-36); MEAN CORPUSCULAR VOLUME 87 fL (79.0-98.0); MONOCYTES # (AUTO) 0.3 K/uL (0.0-1.0); MONOCYTES % (AUTO) 4.3 % (1.7-9.3); NEUTROPHILS # (AUTO) 4.9 K/uL (1.8-7.7); NEUTROPHILS % (AUTO) 71.9 % (40.0-70.0); PLATELET COUNT (AUTO) 206 K/uL (130-430); RED BLOOD CELL COUNT(AUTO) 4.67 MIL/uL (4.2-6.2); RED CELL DISTRIBUTION WIDTH 15.2 % (9.0-15.0); WHITE BLOOD COUNT (AUTO) 6.8 K/uL (4.8-10.8)
[2022-11-20 07:06] LABS: CALCIUM 8.2 mg/dL (8.4-11.0); CREATININE 0.74 mg/dL (0.55-1.30)
--- NOTE | 2022-11-20 07:10 | NUR ---
CLOSING NOTES PATIENT IS LYING IN BED AXO 1 WITH NO S/S OF DISTRESS OR DISCOMFORT. BREATHING IS EQUAL AND UNLABORED ON RA. PATIENT IV WAS INFILTRATED, HAD TO D/C IVF AND REMOVE IV. ENDORSED TO DAYSHIFT NURSE A NEW IV WILL NEED TO BE STARTED. CHANGED PATIENT'S AND LINENS. SAFETY CHECKS DONE AND CALL LIGHT WITH IN REACH.
[2022-11-20 08:00] VITALS: BP_SYST 132; PULSE 79; RESP 18; TEMP 96.8; O2SAT 96
[2022-11-20] MEDS: mycophenolate mofetiL 250 MG CAPSULE PO SCH (09:00)
[2022-11-20] MEDS: methylPREDNISolone SOD SUCC/PF 62.5 MG/ML VIAL IVP SCH (09:26)
[2022-11-20] MEDS: LANOLIN ALCOHOL/MO/W.PET/CERES 57 GM CREAM..G. TP SCH (09:27)
[2022-11-20] MEDS: CLOBETASOL PROPIONATE 0.05% 15 GM CREAM..G. TP SCH (09:27)
[2022-11-20] MEDS: levETIRAcetam 500 MG TABLET PO SCH (09:27)
[2022-11-20] MEDS: SILVER SULFADIAZINE 1%, 400 GM 400 GM CREAM.GM. TP SCH (09:27)
--- NOTE | 2022-11-20 09:58 | NUR ---
Jelly from [facility] called to inform that the director denied authorization for a SNF. They will auth for for wound care. Will notify [facility] and [facility]
--- NOTE | 2022-11-20 10:19 | NUR ---
CM spoke with patient mother who was updated on [facility] not authorizing for SNF. Mother is ok and will coordinate with [facility] to have her placed at an ICF in [place]. CM to call Christa at [facility]
--- NOTE | 2022-11-20 10:27 | NUR ---
CM left a message for Christ[facility]auffman at [facility] regarding [facility] placement. left CB#
[2022-11-20 12:00] VITALS: BP_SYST 118; PULSE 94; RESP 18; TEMP 97.8; O2SAT 94
--- NOTE | 2022-11-20 12:45 | NUR ---
HH referral faxed to [facility]# [phone] and [facility] [phone]. will follow up
--- NOTE | 2022-11-20 13:06 | NUR ---
CM faxed patient referral for HH to Christa at [facility] per request
--- NOTE | 2022-11-20 13:11 | NUR ---
[facility]ISTA faxed referral to [facility] f#[phone] Addendum: 11/20/22 at 1314 by Christina Stuart RN disregard last note; wrong patient
--- NOTE | 2022-11-20 13:56 | NUR ---
CM received notice that patient mother Rosalina Carvajal will be taking her daughter home to take care of her for a few weeks. Mother states she will manage her daughters wound care. She is asking for the doctor to send a prescription for the medication ointments for the wound care [facility] [place] [place], [place] [phone]. Dr Zamora notified and will send the ointment prescriptions to mother's pharmacy. Patient is ok to discharge home per Dr Wili Zamora
[2022-11-20] MEDS ORDERED: CLOB15CR4 TP (14:27)
[2022-11-20 14:51] VITALS: BP_SYST 132; PULSE 79; RESP 18; TEMP 96.8; O2SAT 96
--- NOTE | 2022-11-20 15:02 | NUR ---
patient DC with DC paper printed and signed by the mom. Patient DC via wheelchair assisted by mom. no IV.
--- NOTE | 2022-11-20 15:27 | NUR ---
PATIENT REFUSED PT TREATMENT TODAY D/T FEELING TIRED. WILL TRY AGAIN TOMORROW.
--- NOTE | 2022-11-20 15:45 | NUR ---
TRISTA received a phone call from patient mother who is unable to get her past the ED;patient on floor fighting transportation. TRISTA notified cottage supervisor Carlos of the situation. Carlos to involve Tasha RAMIREZ.
--- NOTE | 2022-11-21 08:45 | NUR ---
CM received a call yesterday at 17:00 that the patient father was called and convinced her to get into the W/C and went home with mom. Jelly from [facility] updated. will fax DC summary to her
== END 2022-11-20 15:30 | disposition home health service (06) | DRG 381 ==
LOC: SED 12:21 → SMU 12:30
PROVIDERS: ADMIT Preventive Medicine Preventive Medicine/Occupational Environmental Medicine; ATTEND Preventive Medicine Preventive Medicine/Occupational Environmental Medicine
DX: L12.0 Bullous pemphigoid (principal); E43 Unspecified severe protein-calorie malnutrition; R65.10 Systemic inflammatory response syndrome (SIRS) of non-infectious origin without acute organ dysfunction; E87.1 Hypo-osmolality and hyponatremia; E83.51 Hypocalcemia; E88.09 Other disorders of plasma-protein metabolism, not elsewhere classified; Q90.9 Down syndrome, unspecified; Z68.33 Body mass index [BMI] 33.0-33.9, adult; G40.909 Epilepsy, unspecified, not intractable, without status epilepticus; E78.5 Hyperlipidemia, unspecified; D72.829 Elevated white blood cell count, unspecified; R73.9 Hyperglycemia, unspecified; R74.01 Elevation of levels of liver transaminase levels
CPT/HCPCS: 36415; 80048; 80053; 85025; 85651-TC; 87081; 97116-GP; 97530-GP; 99285; J2060; J2930; J7030; J7512; J7517